=== PATIENT | male | born 1995 | race African-American/Black ===

== ENCOUNTER 2023-08-29 12:09 | Emergency (ER) | payer SELFPAY | END 2023-08-29 13:47 | disposition home or self-care (01) | LOC: ERS 12:09 | DX: K08.89 Other specified disorders of teeth and supporting structures (principal); R22.0 Localized swelling, mass and lump, head | CPT/HCPCS: 99283 ==

== ENCOUNTER 2023-11-22 15:39 | Emergency (ER) | payer SELFPAY ==
[2023-11-22 16:52] LABS: Influenza A by NAA Not Detected (NotDetected); Influenza B by NAA Not Detected (NotDetected); SARS-CoV-2 NAA Rapid Test DETECTED (NotDetected)
[2023-11-22] MEDS ORDERED: Oxymetazoline HCl 0.05% (30 ML BOT) ONE ×2 (16:53→16:54)
== END 2023-11-22 17:40 | disposition home or self-care (01) ==
LOC: ERS 15:39
DX: U07.1 COVID-19 (principal); S39.840A Fracture of corpus cavernosum penis, initial encounter
CPT/HCPCS: 99283